=== PATIENT | female | born 1970 | race Caucasian/White ===

== ENCOUNTER 2023-02-23 07:30 | Day surgery (SDC) | payer OTHER, SELFPAY ==
[2023-02-23] VITALS (7 sets, daily range): BP systolic 93–125; BP diastolic 63–92; PULSE 67–83; RESP 12–22; TEMP 35.8–36.3; O2SAT 92–98; BMI 29.2
--- NOTE | 2023-02-23 | PATH_ITS ---
[facility] Accession Number: [id number] No. of containers..01 Tissue . 01 Material submitted: . colon - TRANSVERSE POLYP . 01 Diagnosis: Transverse Colon Polyp: Tubular adenoma. MRV 03/03/2023 1637 Local . 01 Electronically signed: . Matthias Guzman MD, PhD, Pathologist NPI- [id number] . 01 Gross description: . TRANSVERSE POLYP: Received in formalin is 1 fragment(s) of horowitz, soft tissue measuring 0.3 x 0.3 x 0.2 cm submitted entirely in 1 cassette(s) /CLARISA 02/24/2023 1847 Local . 01 Pathologist provided ICD-10: D12.3 . 01 CPT . 297247 Specimen Comment: A courtesy copy of this report has been sent to [phone] Performed at: 01 [facility] [address] [place] [address], [place], [place] [id number] MD Fei Cervantes MD Phone: [phone]
--- NOTE | 2023-02-23 07:58 | PM.HP.1 ---
History of Present Illness History of Present Illness Date Patient Seen: 02/23/23 Time Patient Seen: 07:58 Chief complaint: SDC Narrative: Here for colon cancer screening today. No family history of colon cancer. Meds Home Medications and Allergies Home Medications Medication Instructions Recorded Confirmed Type [BCP] ##0 10/01/11 History Review of Systems Review of Systems ROS: Yes All systems reviewed with the patient and are negative except as otherwise documented Exam Const General: cooperative HENMT Head: normal to inspection Eyes General: appearance normal, both eyes and all related structures Neck Neck: normal visual inspection Chest Chest: normal inspection of the chest Resp Effort & Inspection: normal respiratory effort Cardio Rate: regular rate GI Inspection: normal to inspection Skin General: no rashes or lesions noted Neuro General: patient alert and patient awake Extrem General: normal to inspection and no pedal edema Psych Appearance: grossly normal Assessment & Plan Assessment & Plan narrative: 52-year-old female here for colon cancer screening. Colonoscopy is pursued today.
[2023-02-23] MEDS: LACTATED RINGERS 1,000 ML 150 ML IV (07:59)
--- NOTE | 2023-02-23 07:59 | PM.PREOP ---
Pre-operative Note Interval Note History & Physical reviewed/Exam performed by Physician: Yes Changes to H&P: No ASA Class (for procedural sedation): I
--- NOTE | 2023-02-23 08:59 | PM.OP.COLON ---
Operative Date/Time/Diagnoses Date of procedure: 02/23/23 Time of procedure: 08:59 Pre-op diagnosis: Colon cancer screening Post-op diagnosis: same Procedure & Clinicians Study performed: Colonoscopy with cold snare polypectomy Same procedure as scheduled: Yes Indications: Colon cancer screening Surgeon: Jose Kyle Procedure Notes SCOAP/Timeout: Done Procedure in detail: After the risks and benefits were explained, written and verbal informed consent was obtained. The patient was brought into the procedure room and placed into the left lateral decubitus position. Please see anesthesia notes for sedation details. Digital rectal examination was accomplished. The scope was introduced into the patient and advanced under direct visualization to the cecum as identified by the appendiceal orifice and ileocecal valve. The scope was slowly withdrawn to carefully examine the mucosa for any defects or lesions. Comprehensive imaging was accomplished throughout the rectum including the dentate line. The colon was decompressed, the scope was then removed from the patient who tolerated the procedure well. Pediatric colonoscope Bowel prep adequate Scope withdrawal time: 10 minutes Sedation minutes: 19 Complications: none Impression: There was some early scattered diverticulosis in the sigmoid. Mild internal grade 2 hemorrhoids with hypertrophied anal papillae were noted. In the transverse colon there was an approximately 4 to 5 mm polyp removed with cold snare. No additional significant pathology was appreciated throughout. Endoscopic diagnosis 1. Diverticulosis 2. Grade 2 hemorrhoids 3. Small colon polyp Post-procedure Plan for aftercare: 1. Await histopathology. 2. If this polyp is confirmed adenomatous, repeat colonoscopy will be suggested for 7 years. Disposition: PACU
== END 2023-02-23 09:42 | disposition home or self-care (01) ==
PROVIDERS: PCP Nurse Practitioner; Referring Provider Internal Medicine Gastroenterology; Visit Provider Internal Medicine Gastroenterology
PROC: 0DJD8ZZ Inspection of Lower Intestinal Tract, Via Natural or Artificial Opening Endoscopic (ICD-10-PCS; CPT 45378; principal; 2023-02-23 08:30)
DX: Z12.11 Encounter for screening for malignant neoplasm of colon (principal); K57.30 Diverticulosis of large intestine without perforation or abscess without bleeding; K64.1 Second degree hemorrhoids; D12.3 Benign neoplasm of transverse colon
CPT/HCPCS: 45385; J1100; J2405; J2704